=== PATIENT | male | born 1985 | race Caucasian/White ===

== ENCOUNTER 2019-07-03 16:01 | Emergency (ER) | payer BC, OTHER ==
[2019-07-03] MEDS ORDERED: ceFAZolin 1 GM Vial IM ONE (16:17)
--- NOTE | 2019-07-03 16:50 | CR ---
[id number] RAD/RAD Knee Right 1-2V Exam: RAD Knee Right 1-2V Indication:FOREIGN BODY REMOVED FROM KNEE. Comparison: No prior imaging for comparison. Discussion: No acute fracture or dislocation. Joint spaces are well-preserved. No foreign body identified. Impression: No acute findings. Terry Brito MD 07/03/19 1172 Thank you for allowing us to participate in the care of your patient.
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
== END 2019-07-03 16:55 | disposition home or self-care (01) ==
LOC: VM.ED 16:01
DX: S80.251A Superficial foreign body, right knee, initial encounter (principal); J45.909 Unspecified asthma, uncomplicated; Z91.048 Other nonmedicinal substance allergy status; Z79.899 Other long term (current) drug therapy; W45.8XXA Other foreign body or object entering through skin, initial encounter
CPT/HCPCS: 10120; 73560; 96372; 99283; J0690; J2001

== ENCOUNTER 2023-03-25 09:20 | Day surgery (SDC) | payer OTHER ==
[~2023-03-25 09:20] MED LIST: Lactated Ringers 1,000 ML IV SCH
[2023-03-25] MEDS: Lactated Ringers 1,000 ML IV SCH (09:54)
[2023-03-25] MEDS ORDERED: Propofol 200 MG/20 ML SDV ONE ×2 (11:14→11:37)
[2023-03-25] MEDS ORDERED: fentaNYL 100 MCG/2 ML SDV ONE (11:14)
== END 2023-03-25 13:25 | disposition home or self-care (01) ==
LOC: VM.SDS 09:20
PROVIDERS: ATTEND Family Medicine
DX: D12.6 Benign neoplasm of colon, unspecified (principal); F41.9 Anxiety disorder, unspecified; M54.42 Lumbago with sciatica, left side; J45.40 Moderate persistent asthma, uncomplicated; I10 Essential (primary) hypertension; E66.9 Obesity, unspecified; K92.1 Melena; Z79.899 Other long term (current) drug therapy; Z91.048 Other nonmedicinal substance allergy status; Z90.49 Acquired absence of other specified parts of digestive tract; Z68.30 Body mass index [BMI] 30.0-30.9, adult; Z80.0 Family history of malignant neoplasm of digestive organs
CPT/HCPCS: 00811; 45380; 45385; J2704; J3010; J7120